=== PATIENT | female | born 1950 | race Caucasian/White ===

== ENCOUNTER 2024-12-18 10:03 | Outpatient (CLI) | payer MEDICARE | END 2024-12-18 10:04 | disposition home or self-care (01) | LOC: RAD 10:03 | PROVIDERS: ATTEND Otolaryngology Plastic Surgery within the Head & Neck | DX: R13.10 Dysphagia, unspecified (principal); R63.30 Feeding difficulties, unspecified | CPT/HCPCS: 74230 ==